=== PATIENT | female | born 1990 | race American Indian/Alaskan Native ===

== ENCOUNTER 2016-05-21 00:32 | Emergency (ER) | payer OTHER ==
[2016-05-21 01:19] LABS: Basophils % (Auto) 0.4 % (0.0-1.8); Hematocrit 31.7 % (30.3-42.9); Hemoglobin 10.1 gm/dl (10.1-14.3); Mean Corpuscular HGB Conc 32 % (30-34); Mean Corpuscular Hemoglobin 24 pg (28-32); Mean Corpuscular Volume 74 fl (79-97); Platelet Count 360 K/mm3 (140-440); Red Cell Distribution Width 16.2 % (13.2-15.2); White Blood Count 7.7 K/mm3 (4.5-11.0)
[2016-05-21 01:28] LABS: BUN/Creatinine Ratio 12.85; Blood Urea Nitrogen 9 mg/dL (7-17); Calcium 8.9 mg/dL (8.4-10.2); Carbon Dioxide 28 mmol/L (22-30); Chloride 100.5 mmol/L (98-107); Glucose 112 mg/dL (65-100); Potassium 4.1 mmol/L (3.6-5.0); Sodium 138 mmol/L (137-145)
[2016-05-21 01:36] LABS: Anion Gap 14 mmol/L
--- NOTE | 2016-05-21 09:26 | Emergency Department Report ---
HPI - General Chief Complaint: Chest Pain Time Seen by Provider: 05/21/16 09:17 - HPI HPI: Chief complaint: Chest pain HPI: Patient is a 25-year-old female complains of fluttering in her chest and shortness breath for the last several days. Patient states it is intermittent fluttering feels like it is racing. Patient has a history of gestational diabetes and obesity. Patient denies hypertension, cholesterol, family history of coronary artery disease, history of smoking or cocaine use. Patient has not had any recent travel or surgery and is not having any leg pain or unilateral leg swelling. Patient denies cough or cold or any nausea vomiting or diarrhea. Mode of arrival: [EMS] Source: [Patient] [old chart] Began: Several days Duration: Intermittent Context: See above Quality: Fluttering Severity: Mild Improved with: No change with respirations or palpation Worsened with: Associated signs and symptoms: See above ED Past Medical Hx - Past Medical History Previous Medical History?: Yes Hx Diabetes: Yes (gestational) Hx Seizures: No Hx Psychiatric Treatment: Yes (Anxiety) Additional medical history: MORBID OBESITY - Surgical History Past Surgical History?: Yes Additional Surgical History: C section x 1 - Social History Smoking Status: Never Smoker Substance Use Type: None - Medications Home Medications: Home Medications Medication Instructions Recorded Confirmed Last Taken Type Ibuprofen [Motrin 800 MG tab] 800 mg PO Q8HR PRN #30 tablet 03/20/16 Unknown Rx Ondansetron [Zofran TAB] 4 mg PO Q8HR PRN #10 tablet 03/20/16 Unknown Rx ED Review of Systems ROS: Stated complaint: GENERAL ILLNESS Other details as noted in HPI ROS Constitutional: No fever ENT: No uri symptoms Cardiovascular: See HPI Respiratory: No cough GI: No nausea vomiting or diarrhea : No dysuria frequency or urgency, Skin: No rash Neuro: No focal weakness or numbness Psych: Anxiety Raffaele/lymph: No edema Physical Exam - Physical Exam Vital Signs: Vital Signs 05/21/16 05/21/16 05/21/16 00:40 05:45 08:55 Temperature 97.9 F 97.7 F Pulse Rate 73 64 65 Respiratory 18 18 20 Rate Blood Pressure 148/92 142/94 Blood Pressure 140/77 [Left] O2 Sat by Pulse 100 100 100 Oximetry Physical Exam: GENERAL: The patient is a morbidly obese -[place] female no acute distress. HEENT: Normocephalic. Atraumatic. Extraocular motions are intact. Patient has moist mucous membranes. NECK: Supple. No meningitic signs are noted. There is no adenopathy noted. CHEST/LUNGS: Clear to auscultation. There is no respiratory distress noted. HEART/CARDIOVASCULAR: Regular. There is no tachycardia. There is no gallop rub or murmur. ABDOMEN: Abdomen is soft, nontender. Patient has normal bowel sounds. There is no abdominal distention. SKIN: There is no rash. There is no edema. There is no diaphoresis. NEURO: The patient is awake, alert, and oriented. The patient is cooperative. The patient has no focal neurologic deficits. The patient has normal speech. MUSCULOSKELETAL: There is no tenderness or deformity. There is no limitation range of motion. There is no evidence of acute injury. ED Course Vital Signs 05/21/16 05/21/16 05/21/16 00:40 05:45 08:55 Temperature 97.9 F 97.7 F Pulse Rate 73 64 65 Respiratory 18 18 20 Rate Blood Pressure 148/92 142/94 Blood Pressure 140/77 [Left] O2 Sat by Pulse 100 100 100 Oximetry ED Medical Decision Making - Lab Data Result diagrams: 05/21/16 01:03 05/21/16 01:03 Laboratory Tests 05/21/16 05/21/16 05/21/16 01:03 01:03 04:10 Troponin T < 0.010 < 0.010 HCG, Qual Negative 05/21/16 06:54 Troponin T < 0.010 HCG, Qual - EKG Data -: EKG Interpreted by Ok EKG shows normal: sinus rhythm Rate: normal (80) - EKG Data When compared to previous EKG there are: no significant change Interpretation: normal EKG - Radiology Data Radiology results: report reviewed (chest x-ray shows no acute process.) Critical care attestation.: If time is entered above; I have spent that time in minutes in the direct care of this critically ill patient, excluding procedure time. ED Disposition Clinical Impression: Palpitations Disposition: DISCHARGED TO HOME OR SELFCARE Is pt being admited?: No Does the pt Need Aspirin: No Condition: Stable Instructions: Palpitations (ED) Referrals: PRIMARY MD ESTRELLA [Primary Care Provider] - 3-5 Days [facility] [Provider Group] - 3-5 Days (This is a cardiology group for you to follow-up with for your palpitations.) Time of Disposition: 10:47
[2016-05-21] MEDS ORDERED: ZOFRAN IV ONE (09:49)
[2016-05-21] MEDS ORDERED: MORPHINE IV ONE (09:49)
--- NOTE | 2016-05-21 09:52 | XRay Report ---
ROUTINE CHEST, TWO VIEWS: HISTORY: chest pain. The trachea, heart, mediastinal contour, lung barrera and bony thorax are unremarkable. IMPRESSION: Unremarkable chest x-ray. No significant change since 12/07/15.
[2016-05-21 11:46] VITALS: BP 135/68
== END 2016-05-21 11:46 | disposition home or self-care (01) ==
LOC: ED 00:32
DX: R00.2 Palpitations (principal); R07.9 Chest pain, unspecified; E66.01 Morbid (severe) obesity due to excess calories; F41.9 Anxiety disorder, unspecified
CPT/HCPCS: 36415; 71020; 80048; 84484; 84703; 85025; 93005; 93010; 96374; 96375; 99285; J2270; J2405

== ENCOUNTER 2016-08-29 20:36 | Emergency (ER) | payer SELFPAY ==
[2016-08-29 21:45] LABS: Basophils % (Auto) 0.5 % (0.0-1.8); Hematocrit 36.7 % (30.3-42.9); Hemoglobin 11.4 gm/dl (10.1-14.3); Mean Corpuscular HGB Conc 31 % (30-34); Mean Corpuscular Volume 76 fl (79-97); Platelet Count 375 K/mm3 (140-440); Red Blood Count 4.83 M/mm3 (3.65-5.03); Red Cell Distribution Width 16.7 % (13.2-15.2)
[2016-08-29 21:52] LABS: Mean Corpuscular Hemoglobin 24 pg (28-32)
[2016-08-29 22:03] LABS: Anion Gap 19 mmol/L; BUN/Creatinine Ratio 21.25; Blood Urea Nitrogen 17 mg/dL (7-17); Calcium 9.6 mg/dL (8.4-10.2); Carbon Dioxide 24 mmol/L (22-30); Chloride 92.9 mmol/L (98-107); Potassium 4.2 mmol/L (3.6-5.0); Sodium 132 mmol/L (137-145)
[2016-08-29 22:19] LABS: Glucose 547 mg/dL (65-100)
[2016-08-29] MEDS ORDERED: NACL 0.9% 1000 ML 2,000 ML ONE (23:42)
[2016-08-29 23:44] LABS: Bacteria,Urine 1+ /HPF (Negative); Bilirubin,Urine NEG (Negative); Blood,Urine LG (Negative); Ketones,Urine NEG (Negative); Leukocyte Esterase,Urine TR (Negative); Nitrite,Urine NEG (Negative); Protein,Urine <15 mg/dL mg/dL (Negative); Urobilinogen,Urine < 2.0 mg/dL (<2.0)
[2016-08-30] MEDS: NACL 0.9% 1000 ML 1,000 ML IV ONE ×2 (00:05)
--- NOTE | 2016-08-30 02:30 | Emergency Department Report ---
ED Abdominal Pain HPI - General Chief Complaint: Hyperglycemia Stated Complaint: HIGH BLOOD SUGAR Time Seen by Provider: 08/30/16 01:25 Source: patient Mode of arrival: Stretcher Limitations: No Limitations - History of Present Illness Initial Comments: patient is a 25-year-old female with a history of morbid obesity and diabetes. Patient presented to the ER with dizziness and elevated blood sugars. She reports she takes metformin 500 mg twice daily but has not had any follow-up with any primary care due to insurance reasons. Otherwise no fevers chills nausea vomiting diarrhea chest pain shortness of breath abdominal pain dysuria back pain travel or sick contacts Severity scale (0 -10): 0 - Related Data Previous Rx's Medication Instructions Recorded Last Taken Type Ibuprofen [Motrin 800 MG tab] 800 mg PO Q8HR PRN #30 tablet 03/20/16 Unknown Rx Ondansetron [Zofran TAB] 4 mg PO Q8HR PRN #10 tablet 03/20/16 Unknown Rx Cefdinir 300 mg PO BID #14 capsule 08/30/16 Unknown Rx metFORMIN [Glucophage] 850 mg PO BID #30 tablet 08/30/16 Unknown Rx Allergies Allergy/AdvReac Type Severity Reaction Status Date / Time metoclopramide HCl AdvReac Itching Verified 02/21/16 12:16 [From [facility]] ED Review of Systems ROS: Stated complaint: HIGH BLOOD SUGAR Other details as noted in HPI Comment: All other systems reviewed and negative ED Past Medical Hx - Past Medical History Previous Medical History?: Yes Hx Diabetes: Yes (gestational) Hx Seizures: No Hx Psychiatric Treatment: Yes (Anxiety) Additional medical history: MORBID OBESITY - Surgical History Past Surgical History?: Yes Additional Surgical History: C section x 1 - Social History Smoking Status: Never Smoker Substance Use Type: None - Medications Home Medications: Home Medications Medication Instructions Recorded Confirmed Last Taken Type Ibuprofen [Motrin 800 MG tab] 800 mg PO Q8HR PRN #30 tablet 03/20/16 Unknown Rx Ondansetron [Zofran TAB] 4 mg PO Q8HR PRN #10 tablet 03/20/16 Unknown Rx Cefdinir 300 mg PO BID #14 capsule 08/30/16 Unknown Rx metFORMIN [Glucophage] 850 mg PO BID #30 tablet 08/30/16 Unknown Rx ED Physical Exam - General Limitations: No Limitations, Other (Morbid obesity) General appearance: alert, in no apparent distress - Head Head exam: Present: atraumatic, normocephalic - Eye Eye exam: Present: normal appearance - ENT ENT exam: Present: mucous membranes moist - Neck Neck exam: Present: normal inspection - Respiratory Respiratory exam: Present: normal lung sounds bilaterally. Absent: respiratory distress - Cardiovascular Cardiovascular Exam: Present: regular rate, normal rhythm. Absent: systolic murmur, diastolic murmur, rubs, gallop - GI/Abdominal GI/Abdominal exam: Present: soft, normal bowel sounds - Extremities Exam Extremities exam: Present: normal inspection - Back Exam Back exam: Present: normal inspection - Neurological Exam Neurological exam: Present: alert, oriented X3 - Psychiatric Psychiatric exam: Present: normal affect, normal mood - Skin Skin exam: Present: warm, dry, intact, normal color. Absent: rash ED Course Vital Signs 08/29/16 08/30/16 08/30/16 21:01 00:05 02:00 Temperature 97.8 F Pulse Rate 92 H 88 84 Respiratory 16 16 Rate Blood Pressure 141/93 Blood Pressure 114/54 132/88 [Left] O2 Sat by Pulse 98 97 97 Oximetry 08/30/16 02:51 Temperature Pulse Rate 86 Respiratory 18 Rate Blood Pressure Blood Pressure 132/88 [Left] O2 Sat by Pulse 97 Oximetry ED Medical Decision Making - Lab Data Result diagrams: 08/29/16 21:25 08/29/16 21:25 Critical care attestation.: If time is entered above; I have spent that time in minutes in the direct care of this critically ill patient, excluding procedure time. ED Disposition Clinical Impression: Hyperglycemia, UTI (urinary tract infection) Disposition: DISCHARGED TO HOME OR SELFCARE Is pt being admited?: No Condition: Stable Prescriptions: Cefdinir 300 mg PO BID #14 capsule metFORMIN [Glucophage] 850 mg PO BID #30 tablet Referrals: PRIMARY CARE, [Primary Care Provider] - 3-5 Days
[2016-08-30 02:51] VITALS: BP 132/88
== END 2016-08-30 03:18 | disposition home or self-care (01) ==
LOC: ED 20:36
DX: N39.0 Urinary tract infection, site not specified (principal); R73.9 Hyperglycemia, unspecified
CPT/HCPCS: 36415; 80048; 81001; 82010; 82805; 82962; 84484; 85025; 93005; 93010; 96360; 96361; 99285; J7030

== ENCOUNTER 2016-12-10 09:58 | Emergency (ER) | payer SELFPAY ==
[2016-12-10 10:53] LABS: Basophils % (Auto) 0.3 % (0.0-1.8); Eosinophils % (Auto) 0.7 % (0.0-4.3); Hematocrit 35.9 % (30.3-42.9); Hemoglobin 11.3 gm/dl (10.1-14.3); Mean Corpuscular HGB Conc 31 % (30-34); Mean Corpuscular Volume 74 fl (79-97); Platelet Count 368 K/mm3 (140-440); Red Blood Count 4.87 M/mm3 (3.65-5.03); Red Cell Distribution Width 16.9 % (13.2-15.2); White Blood Count 6.4 K/mm3 (4.5-11.0)
[2016-12-10 10:58] LABS: Mean Corpuscular Hemoglobin 23 pg (28-32)
[2016-12-10 11:09] LABS: Anion Gap 19 mmol/L; Blood Urea Nitrogen 12 mg/dL (7-17); Calcium 9.3 mg/dL (8.4-10.2); Carbon Dioxide 26 mmol/L (22-30); Chloride 99.2 mmol/L (98-107); Glucose 241 mg/dL (65-100); Potassium 4.3 mmol/L (3.6-5.0); Sodium 140 mmol/L (137-145)
[2016-12-10] MEDS ORDERED: TYLENOL PO ONE (16:16)
[2016-12-10] MEDS ORDERED: MOTRIN PO ONE (16:16)
--- NOTE | 2016-12-10 17:27 | XRay Report ---
FINAL REPORT PROCEDURE: Chest. TECHNIQUE: HISTORY: Chest pain. COMPARISON: No prior studies are available for comparison. FINDINGS: The heart and mediastinum appear normal. The lungs are clear and well expanded. There are no pleural effusions. The soft tissues and regional skeleton are unremarkable. IMPRESSION: Normal study.
--- NOTE | 2016-12-10 17:57 | Emergency Department Report ---
ED Chest Pain HPI - General Chief Complaint: Chest Pain Stated Complaint: LEFT ARM PRESSURE/CHEST PRESSURE Time Seen by Provider: 12/10/16 16:14 Source: patient Mode of arrival: Ambulatory Limitations: No Limitations - History of Present Illness Initial Comments: Patient is a 26-year-old female with no significant past medical history who presents with left-sided chest pain. That has been going on for about 2 weeks patient states that pain is a 6 out of 10 coughing makes it worse nothing makes it better. Patient has been taking [id number] medications for her chest pain with no relief. Patient also states that she has been having a productive cough with green mucus. No fever and no chills patient denies having any sick contacts. Patient's pain is not associated with vision changes like swelling or headache. Severity scale (0 -10): 10 - Related Data Previous Rx's Medication Instructions Recorded Last Taken Type Ondansetron [Zofran TAB] 4 mg PO Q8HR PRN #10 tablet 03/20/16 Unknown Rx Cefdinir 300 mg PO BID #14 capsule 08/30/16 Unknown Rx metFORMIN [Glucophage] 850 mg PO BID #30 tablet 08/30/16 Unknown Rx Acetaminophen [Acetaminophen TAB] 1,000 mg PO Q6HR #60 tablet 12/10/16 Unknown Rx Acetaminophen [Tylenol] 1,000 mg PO Q6HR #30 tablet 12/10/16 Unknown Rx Naproxen [Naprosyn TAB] 375 mg PO BID #30 tablet 12/10/16 Unknown Rx Naproxen [Naprosyn TAB] 375 mg PO BID #30 tablet 12/10/16 Unknown Rx Allergies Allergy/AdvReac Type Severity Reaction Status Date / Time metoclopramide HCl AdvReac Itching Verified 02/21/16 12:16 [From [facility]] Heart Score - HEART Score History: Slightly suspicious EKG: Normal Age: < 45 Risk factors: No known risk factors Troponin: < normal limit HEART Score: 0 ED Review of Systems ROS: Stated complaint: LEFT ARM PRESSURE/CHEST PRESSURE Other details as noted in HPI Constitutional: no symptoms reported Eyes: denies: eye pain, eye discharge, vision change ENT: denies: ear pain, throat pain Respiratory: cough. denies: shortness of breath, wheezing Cardiovascular: chest pain Endocrine: no symptoms reported Gastrointestinal: denies: abdominal pain, nausea, diarrhea Genitourinary: denies: urgency, dysuria, discharge Musculoskeletal: denies: back pain, joint swelling, arthralgia Skin: denies: rash, lesions Neurological: denies: headache, weakness, paresthesias Psychiatric: denies: anxiety, depression Hematological/Lymphatic: denies: easy bleeding, easy bruising ED Past Medical Hx - Past Medical History Previous Medical History?: Yes Hx Diabetes: Yes (gestational) Hx Seizures: No Hx Psychiatric Treatment: Yes (Anxiety) Additional medical history: MORBID OBESITY - Surgical History Past Surgical History?: Yes Additional Surgical History: C section x 1 - Social History Smoking Status: Current Every Day Smoker Substance Use Type: None - Medications Home Medications: Home Medications Medication Instructions Recorded Confirmed Last Taken Type Ondansetron [Zofran TAB] 4 mg PO Q8HR PRN #10 tablet 03/20/16 Unknown Rx Cefdinir 300 mg PO BID #14 capsule 08/30/16 Unknown Rx metFORMIN [Glucophage] 850 mg PO BID #30 tablet 08/30/16 Unknown Rx Acetaminophen [Acetaminophen TAB] 1,000 mg PO Q6HR #60 tablet 12/10/16 Unknown Rx Acetaminophen [Tylenol] 1,000 mg PO Q6HR #30 tablet 12/10/16 Unknown Rx Naproxen [Naprosyn TAB] 375 mg PO BID #30 tablet 12/10/16 Unknown Rx Naproxen [Naprosyn TAB] 375 mg PO BID #30 tablet 12/10/16 Unknown Rx ED Physical Exam - General Limitations: No Limitations General appearance: alert - Head Head exam: Present: atraumatic - Eye Eye exam: Present: normal appearance, PERRL, EOMI - ENT ENT exam: Present: mucous membranes moist - Neck Neck exam: Present: normal inspection - Respiratory Respiratory exam: Present: normal lung sounds bilaterally. Absent: respiratory distress - Cardiovascular Cardiovascular Exam: Present: regular rate, normal heart sounds, other (chest wall tenderness) - GI/Abdominal GI/Abdominal exam: Present: soft - Extremities Exam Extremities exam: Present: normal inspection - Back Exam Back exam: Present: normal inspection - Neurological Exam Neurological exam: Present: alert, oriented X3 - Psychiatric Psychiatric exam: Present: normal affect, normal mood - Skin Skin exam: Present: warm, dry ED Course Vital Signs 12/10/16 12/10/16 12/10/16 10:17 15:36 15:40 Temperature 98.1 F Pulse Rate 75 74 75 Respiratory 16 16 Rate Blood Pressure 145/100 116/63 Blood Pressure [Right] O2 Sat by Pulse 100 98 Oximetry 12/10/16 12/10/16 12/10/16 15:50 15:51 15:59 Temperature Pulse Rate 72 72 Respiratory 16 22 17 Rate Blood Pressure 116/63 Blood Pressure 116/63 [Right] O2 Sat by Pulse 99 98 100 Oximetry 12/10/16 12/10/16 12/10/16 16:00 16:09 16:10 Temperature 98 F Pulse Rate 76 68 Respiratory 10 L 27 H Rate Blood Pressure 120/75 120/75 Blood Pressure [Right] O2 Sat by Pulse 100 100 Oximetry 12/10/16 12/10/16 12/10/16 16:24 16:30 16:40 Temperature Pulse Rate 67 72 Respiratory 15 23 Rate Blood Pressure 116/63 135/70 135/70 Blood Pressure [Right] O2 Sat by Pulse 99 100 100 Oximetry 12/10/16 12/10/16 12/10/16 16:50 17:00 17:10 Temperature Pulse Rate 70 73 72 Respiratory 15 20 13 Rate Blood Pressure 120/75 120/75 146/81 Blood Pressure [Right] O2 Sat by Pulse 99 99 99 Oximetry 12/10/16 12/10/16 12/10/16 17:20 17:30 17:40 Temperature Pulse Rate 71 75 70 Respiratory 16 14 19 Rate Blood Pressure 146/81 146/81 159/89 Blood Pressure [Right] O2 Sat by Pulse 99 100 100 Oximetry 12/10/16 17:50 Temperature Pulse Rate 75 Respiratory 13 Rate Blood Pressure 159/89 Blood Pressure [Right] O2 Sat by Pulse 100 Oximetry - Reevaluation(s) Reevaluation #1: 12/10/16 18:25 Patient states that she still having some slight chest pain will give patient oral analgesic medication. Patent discussed patient's laboratory findings. State that patient can be discharged home with Tylenol or ibuprofen. COSTA score - Costa Score Age > 65: (0) No Aspirin use within the Past 7 Days: (0) No 3 or more CAD Risk Factors: (0) No 2 or more Angina events in past 24 hrs: (0) No Known CAD with more than 50% Stenosis: (0) No Elevated Cardiac Markers: (0) No ST Deviation Greater than 0.5mm: (0) No COSTA Score: 0 ED Medical Decision Making - Lab Data Result diagrams: 12/10/16 10:39 12/10/16 10:39 Laboratory Results - last 24 hr 12/10/16 12/10/16 12/10/16 10:39 10:39 14:53 WBC 6.4 RBC 4.87 Hgb 11.3 Hct 35.9 MCV 74 L MCH 23 L MCHC 31 RDW 16.9 H Plt Count 368 Lymph % (Auto) 25.9 [place] % (Auto) 7.9 H Eos % (Auto) 0.7 Baso % (Auto) 0.3 Lymph # 1.7 [place] # 0.5 Eos # 0.0 Baso # 0.0 Seg Neutrophils % 65.2 Seg Neutrophils # 4.2 Sodium 140 Potassium 4.3 Chloride 99.2 Carbon Dioxide 26 Anion Gap 19 BUN 12 Creatinine 0.6 L Estimated GFR > 60 BUN/Creatinine Ratio 20.00 Glucose 241 H Calcium 9.3 Troponin T < 0.010 < 0.010 Urine Color Urine Turbidity Urine pH Ur Specific [place] Urine Protein Urine Glucose (UA) Urine Ketones Urine Blood Urine Nitrite Urine Bilirubin Urine Urobilinogen Ur Leukocyte Esterase Urine WBC (Auto) Urine RBC (Auto) U Epithel Cells (Auto) Urine Mucus Urine HCG, Qual 12/10/16 12/10/16 16:47 17:03 WBC RBC Hgb Hct MCV MCH MCHC RDW Plt Count Lymph % (Auto) [place] % (Auto) Eos % (Auto) Baso % (Auto) Lymph # [place] # Eos # Baso # Seg Neutrophils % Seg Neutrophils # Sodium Potassium Chloride Carbon Dioxide Anion Gap BUN Creatinine Estimated GFR BUN/Creatinine Ratio Glucose Calcium Troponin T < 0.010 Urine Color Yellow Urine Turbidity Clear Urine pH 6.0 Ur Specific [place] 1.022 Urine Protein 100 mg/dl Urine Glucose (UA) >=500 Urine Ketones Neg Urine Blood Lg Urine Nitrite Neg Urine Bilirubin Neg Urine Urobilinogen < 2.0 Ur Leukocyte Esterase Sm Urine WBC (Auto) 55.0 H Urine RBC (Auto) > 182.0 U Epithel Cells (Auto) 23.0 H Urine Mucus Few Urine HCG, Qual Negative - EKG Data 12/10/16 18:27 EKG shows normal sinus rhythm no ST segment elevation no prolonged intervals no Q waves - Radiology Data Radiology results: report reviewed, image reviewed Chest x-ray reviewed shows no acute pulmonary disease no cardiomegaly no pneumothorax noted findings. - Medical Decision Making Chief medical diagnosis: Pulled chest wall muscle Differential medical diagnosis: N STEMI, bruised rib, costochondritis pneumothorax We'll get an EKG and troponin CBC CMP and chest x-ray Patient's laboratory findings and chest x-ray showed no concerning acute pathology we'll send patient home with, ibuprofen and will tell patient to follow follow-up with a primary care provider. Critical care attestation.: If time is entered above; I have spent that time in minutes in the direct care of this critically ill patient, excluding procedure time. ED Disposition Clinical Impression: Chest wall pain Disposition: - TO HOME OR SELFCARE Is pt being admited?: No Does the pt Need Aspirin: No Condition: Stable Instructions: Chest Pain (ED), Costochondritis (ED) Prescriptions: Acetaminophen [Acetaminophen TAB] 1,000 mg PO Q6HR #60 tablet Acetaminophen [Tylenol] 1,000 mg PO Q6HR #30 tablet Naproxen [Naprosyn TAB] 375 mg PO BID #30 tablet Naproxen [Naprosyn TAB] 375 mg PO BID #30 tablet Referrals: [facility] [Provider Group] - 3-5 Days MAYNOR NAVARRO JR, MD [Staff Physician] - 3-5 Days Time of Disposition: 18:36
[2016-12-10 17:59] LABS: Bilirubin,Urine NEG (Negative); Blood,Urine LG (Negative); Ketones,Urine NEG (Negative); Leukocyte Esterase,Urine SM (Negative); Mucus,Urine FEW /HPF; Nitrite,Urine NEG (Negative); Urobilinogen,Urine < 2.0 mg/dL (<2.0)
[2016-12-10 18:02] LABS: RBC,Urine > 182.0 /HPF (0.0-6.0)
[2016-12-10] MEDS ORDERED: NORCO 10/325 PO ONE (18:05)
[2016-12-10 19:16] VITALS: BP 148/61
== END 2016-12-10 19:16 | disposition home or self-care (01) ==
LOC: ED 09:58
DX: R07.89 Other chest pain (principal); F41.9 Anxiety disorder, unspecified; E66.01 Morbid (severe) obesity due to excess calories; F17.200 Nicotine dependence, unspecified, uncomplicated; Z88.8 Allergy status to other drugs, medicaments and biological substances
CPT/HCPCS: 36415; 71020; 80048; 81001; 81025; 84484; 85025; 93005; 93010

== ENCOUNTER 2017-01-18 00:05 | Emergency (ER) | payer SELFPAY ==
[2017-01-18 00:46] LABS: Basophils % (Auto) 0.6 % (0.0-1.8); Eosinophils % (Auto) 0.7 % (0.0-4.3); Hematocrit 33.1 % (30.3-42.9); Hemoglobin 10.6 gm/dl (10.1-14.3); Mean Corpuscular HGB Conc 32 % (30-34); Mean Corpuscular Volume 74 fl (79-97); Platelet Count 439 K/mm3 (140-440); Red Blood Count 4.48 M/mm3 (3.65-5.03); Red Cell Distribution Width 17.7 % (13.2-15.2); White Blood Count 10.5 K/mm3 (4.5-11.0)
[2017-01-18 00:52] LABS: Mean Corpuscular Hemoglobin 24 pg (28-32)
[2017-01-18 01:08] LABS: Alanine Aminotransferase 12 units/L (7-56); Albumin 4.2 g/dL (3.9-5); Alkaline Phosphatase 88 units/L (35-129); Anion Gap 18 mmol/L; BUN/Creatinine Ratio 14.44; Blood Urea Nitrogen 13 mg/dL (7-17); Calcium 9.6 mg/dL (8.4-10.2); Carbon Dioxide 26 mmol/L (22-30); Chloride 98.5 mmol/L (98-107); Glucose 158 mg/dL (65-100); Lipase 23 units/L (13-60); Potassium 4.1 mmol/L (3.6-5.0); Sodium 138 mmol/L (137-145); Total Protein 8.6 g/dL (6.3-8.2)
[2017-01-18 02:26] LABS: Bacteria,Urine 1+ /HPF (Negative); Bilirubin,Urine NEG (Negative); Blood,Urine LG (Negative); Ketones,Urine NEG (Negative); Leukocyte Esterase,Urine TR (Negative); Nitrite,Urine NEG (Negative); RBC,Urine > 182.0 /HPF (0.0-6.0); Urobilinogen,Urine < 2.0 mg/dL (<2.0)
[2017-01-18 03:47] VITALS: BP 107/53
--- NOTE | 2017-01-18 04:05 | Emergency Department Report ---
ED Female HPI - General Chief complaint: Abdominal Pain Stated complaint: ABD PAIN Time Seen by Provider: 01/18/17 03:54 Source: patient Mode of arrival: Ambulatory Limitations: No Limitations - History of Present Illness Initial comments: 26 years old female with no previous significant medical history she can with an abnormal vaginal bleeding has being going on since June of this year she stated that the bleeding is on and off sometimes with clots. Denied any shortness of breath chest pain or dizziness. Patient stated that she is not sexually active. No other complaints. MD Complaint: vaginal bleeding -: Gradual Associated Symptoms: vaginal bleeding. denies: nausea/vomiting, loss of appetite - Related Data Previous Rx's Medication Instructions Recorded Last Taken Type Ondansetron [Zofran TAB] 4 mg PO Q8HR PRN #10 tablet 03/20/16 Unknown Rx Cefdinir 300 mg PO BID #14 capsule 08/30/16 Unknown Rx metFORMIN [Glucophage] 850 mg PO BID #30 tablet 08/30/16 Unknown Rx Acetaminophen [Acetaminophen TAB] 1,000 mg PO Q6HR #60 tablet 12/10/16 Unknown Rx Acetaminophen [Tylenol] 1,000 mg PO Q6HR #30 tablet 12/10/16 Unknown Rx Naproxen [Naprosyn TAB] 375 mg PO BID #30 tablet 12/10/16 Unknown Rx Naproxen [Naprosyn TAB] 375 mg PO BID #30 tablet 12/10/16 Unknown Rx medroxyPROGESTERone ACETATE 10 mg PO QDAY #10 tablet 01/18/17 Unknown Rx [Provera] Allergies Allergy/AdvReac Type Severity Reaction Status Date / Time metoclopramide HCl AdvReac Itching Verified 02/21/16 12:16 [From [facility]] ED Review of Systems ROS: Stated complaint: ABD PAIN Other details as noted in HPI Comment: All other systems reviewed and negative Constitutional: denies: chills, fever Respiratory: denies: cough, shortness of breath Cardiovascular: denies: chest pain, palpitations Gastrointestinal: denies: abdominal pain, nausea, vomiting, hematemesis, melena , hematochezia Neurological: denies: headache, weakness Hematological/Lymphatic: denies: easy bleeding, easy bruising ED Past Medical Hx - Past Medical History Hx Diabetes: Yes (gestational) Hx Seizures: No Hx Psychiatric Treatment: Yes (Anxiety) Additional medical history: MORBID OBESITY - Surgical History Past Surgical History?: Yes Additional Surgical History: C section x 1 - Social History Smoking Status: Never Smoker - Medications Home Medications: Home Medications Medication Instructions Recorded Confirmed Last Taken Type Ondansetron [Zofran TAB] 4 mg PO Q8HR PRN #10 tablet 03/20/16 Unknown Rx Cefdinir 300 mg PO BID #14 capsule 08/30/16 Unknown Rx metFORMIN [Glucophage] 850 mg PO BID #30 tablet 08/30/16 Unknown Rx Acetaminophen [Acetaminophen TAB] 1,000 mg PO Q6HR #60 tablet 12/10/16 Unknown Rx Acetaminophen [Tylenol] 1,000 mg PO Q6HR #30 tablet 12/10/16 Unknown Rx Naproxen [Naprosyn TAB] 375 mg PO BID #30 tablet 12/10/16 Unknown Rx Naproxen [Naprosyn TAB] 375 mg PO BID #30 tablet 12/10/16 Unknown Rx medroxyPROGESTERone ACETATE 10 mg PO QDAY #10 tablet 01/18/17 Unknown Rx [Provera] ED Physical Exam - General Limitations: No Limitations General appearance: alert, in no apparent distress - Head Head exam: Present: normocephalic - Eye Eye exam: Present: normal appearance - ENT ENT exam: Present: normal exam, normal orophraynx - Respiratory Respiratory exam: Present: normal lung sounds bilaterally. Absent: wheezes, rales, rhonchi - Cardiovascular Cardiovascular Exam: Present: regular rate, normal rhythm, normal heart sounds - GI/Abdominal GI/Abdominal exam: Present: soft. Absent: distended, tenderness, guarding, rebound, rigid, normal bowel sounds, organomegaly, mass - Neurological Exam Neurological exam: Present: alert, oriented X3, CN II-XII intact - Skin Skin exam: Present: warm, intact, normal color ED Course Vital Signs 01/18/17 01/18/17 00:14 03:05 Temperature 99.5 F 98.6 F Pulse Rate 102 H 94 H Respiratory 20 16 Rate Blood Pressure 133/86 Blood Pressure 107/53 [Right] O2 Sat by Pulse 97 98 Oximetry ED Medical Decision Making - Lab Data Result diagrams: 01/18/17 00:35 01/18/17 00:35 Critical care attestation.: If time is entered above; I have spent that time in minutes in the direct care of this critically ill patient, excluding procedure time. ED Disposition Clinical Impression: Abnormal vaginal bleeding Disposition: TO HOME OR SELFCARE Is pt being admited?: No Condition: Stable Instructions: Abdominal Pain (ED) Referrals: PRIMARY CARE, [Primary Care Provider] - 3-5 Days PHONG SEVILLA MD [Staff Physician] - 3-5 Days
== END 2017-01-18 04:16 | disposition home or self-care (01) ==
LOC: ED 00:05
DX: N93.9 Abnormal uterine and vaginal bleeding, unspecified (principal); Z88.8 Allergy status to other drugs, medicaments and biological substances
CPT/HCPCS: 36415; 80053; 81001; 81025; 83690; 85025; 99283

== ENCOUNTER 2017-02-08 10:47 | Emergency (ER) | payer SELFPAY ==
[2017-02-08 12:05] LABS: Basophils % (Auto) 0.3 % (0.0-1.8); Eosinophils % (Auto) 0.6 % (0.0-4.3); Hematocrit 26.6 % (30.3-42.9); Hemoglobin 8.3 gm/dl (10.1-14.3); Mean Corpuscular HGB Conc 31 % (30-34); Mean Corpuscular Volume 74 fl (79-97); Platelet Count 441 K/mm3 (140-440); Red Cell Distribution Width 17.4 % (13.2-15.2); White Blood Count 9.8 K/mm3 (4.5-11.0)
[2017-02-08 12:11] LABS: Mean Corpuscular Hemoglobin 23 pg (28-32)
--- NOTE | 2017-02-08 13:57 | Ultrasound Report ---
ULTRASOUND PELVIC COMPLETE ULTRASOUND TRANSVAGINAL HISTORY: Vaginal bleeding, abdominal pain. TECHNIQUE: Transabdominal and transvaginal ultrasound with color and spectral doppler interrogation. The uterus is anteverted and measures 9 x 4 x 5 cm. No obvious uterine fibroids are visualized. The endometrial stripe measures 1.4 cm. There is trace fluid in the lower uterine segment which could represent blood products. The right ovary measures 4.5 x 2.7 x 3.6 cm. The left ovary is not visualized. No adnexal cyst or mass is appreciated. No pelvic fluid collection. IMPRESSION: The uterus and endometrium are within normal limits. There is trace endometrial fluid which could represent blood. No obvious uterine or endometrial mass. Normal right ovary. The left ovary is not visualized.
[2017-02-08 16:03] LABS: Bacteria,Urine 1+ /HPF (Negative); Bilirubin,Urine NEG (Negative); Blood,Urine LG (Negative); Ketones,Urine NEG (Negative); Leukocyte Esterase,Urine MOD (Negative); Nitrite,Urine NEG (Negative); Urobilinogen,Urine < 2.0 mg/dL (<2.0)
[2017-02-08 16:04] LABS: RBC,Urine > 182.0 /HPF (0.0-6.0)
[2017-02-08] MEDS ORDERED: METHERGINE IM ONE (16:27)
--- NOTE | 2017-02-08 16:32 | Emergency Department Report ---
ED Female HPI - General Chief complaint: Vaginal Bleeding Stated complaint: VAGING BLEEDING, ABDOMINAL PAIN Time Seen by Provider: 02/08/17 16:12 Source: patient Mode of arrival: Ambulatory Limitations: No Limitations - History of Present Illness Initial comments: Patient is a 26 years old female presented today with vaginally bleeding for the last two month, patient was seen here 2 weeks ago for the same, patient was given Provera and asked to follow up with her applied behavior science specialist,patient did not follow-up with her applied behavior science specialist she stated that her bleeding continued since then, she is changing pads every 3 hours. Denied any chest pain shortness of breath. MD Complaint: vaginal bleeding, pelvic pain -: month(s) Radiation: suprapubic Severity scale (0 -10): 4 Quality: dull Consistency: constant Associated Symptoms: vaginal bleeding, abdominal pain. denies: vaginal discharge, nausea/vomiting, fever/chills, headaches, loss of appetite, dysuria, hematuria - Related Data Previous Rx's Medication Instructions Recorded Last Taken Type Ondansetron [Zofran TAB] 4 mg PO Q8HR PRN #10 tablet 03/20/16 Unknown Rx Cefdinir 300 mg PO BID #14 capsule 08/30/16 Unknown Rx metFORMIN [Glucophage] 850 mg PO BID #30 tablet 08/30/16 Unknown Rx Acetaminophen [Acetaminophen TAB] 1,000 mg PO Q6HR #60 tablet 12/10/16 Unknown Rx Acetaminophen [Tylenol] 1,000 mg PO Q6HR #30 tablet 12/10/16 Unknown Rx Naproxen [Naprosyn TAB] 375 mg PO BID #30 tablet 12/10/16 Unknown Rx Naproxen [Naprosyn TAB] 375 mg PO BID #30 tablet 12/10/16 Unknown Rx medroxyPROGESTERone ACETATE 10 mg PO QDAY #10 tablet 01/18/17 Unknown Rx [Provera] Ferrous Sulfate [Feosol 325 MG tab] 325 mg PO BID #60 tablet 02/08/17 Unknown Rx medroxyPROGESTERone ACETATE 10 mg PO QDAY #30 tablet 02/08/17 Unknown Rx [Provera] Allergies Allergy/AdvReac Type Severity Reaction Status Date / Time metoclopramide HCl AdvReac Itching Verified 02/21/16 12:16 [From Reglan] ED Review of Systems ROS: Stated complaint: VAGING BLEEDING, ABDOMINAL PAIN Other details as noted in HPI Comment: All other systems reviewed and negative Constitutional: denies: chills, fever Respiratory: denies: cough, shortness of breath, SOB with exertion Gastrointestinal: abdominal pain (suprapubic). denies: nausea, vomiting, diarrhea, constipation, hematemesis, melena, hematochezia Genitourinary: abnormal menses. denies: urgency, dysuria, frequency, hematuria , discharge, dyspareunia Skin: denies: rash Neurological: denies: weakness Hematological/Lymphatic: denies: easy bleeding ED Past Medical Hx - Past Medical History Hx Diabetes: Yes (gestational) Hx Seizures: No Hx Psychiatric Treatment: Yes (Anxiety) Additional medical history: MORBID OBESITY - Surgical History Past Surgical History?: Yes Additional Surgical History: C section x 1 - Social History Smoking Status: Never Smoker Substance Use Type: None - Medications Home Medications: Home Medications Medication Instructions Recorded Confirmed Last Taken Type Ondansetron [Zofran TAB] 4 mg PO Q8HR PRN #10 tablet 03/20/16 Unknown Rx Cefdinir 300 mg PO BID #14 capsule 08/30/16 Unknown Rx metFORMIN [Glucophage] 850 mg PO BID #30 tablet 08/30/16 Unknown Rx Acetaminophen [Acetaminophen TAB] 1,000 mg PO Q6HR #60 tablet 12/10/16 Unknown Rx Acetaminophen [Tylenol] 1,000 mg PO Q6HR #30 tablet 12/10/16 Unknown Rx Naproxen [Naprosyn TAB] 375 mg PO BID #30 tablet 12/10/16 Unknown Rx Naproxen [Naprosyn TAB] 375 mg PO BID #30 tablet 12/10/16 Unknown Rx medroxyPROGESTERone ACETATE 10 mg PO QDAY #10 tablet 01/18/17 Unknown Rx [Provera] Ferrous Sulfate [Feosol 325 MG tab] 325 mg PO BID #60 tablet 02/08/17 Unknown Rx medroxyPROGESTERone ACETATE 10 mg PO QDAY #30 tablet 02/08/17 Unknown Rx [Provera] ED Physical Exam - General Limitations: No Limitations General appearance: alert, in no apparent distress - Head Head exam: Present: atraumatic, normocephalic - Eye Eye exam: Present: normal appearance, PERRL - ENT ENT exam: Present: normal exam, normal orophraynx - Neck Neck exam: Present: normal inspection. Absent: lymphadenopathy - Respiratory Respiratory exam: Present: normal lung sounds bilaterally. Absent: wheezes, rales, rhonchi - Cardiovascular Cardiovascular Exam: Present: regular rate, normal rhythm, normal heart sounds - GI/Abdominal GI/Abdominal exam: Present: soft, normal bowel sounds. Absent: distended, tenderness, guarding, rebound, rigid, mass, bruit, pulsatile mass, hernia - Extremities Exam Extremities exam: Present: normal inspection, full ROM, normal capillary refill - Back Exam Back exam: Present: normal inspection. Absent: CVA tenderness (R), CVA tenderness (L) - Neurological Exam Neurological exam: Present: alert, oriented X3, CN II-XII intact, normal gait - Skin Skin exam: Present: warm, intact, normal color ED Course Vital Signs 02/08/17 02/08/17 02/08/17 11:13 12:39 12:44 Temperature 98.4 F Pulse Rate 84 80 Respiratory 18 18 16 Rate Blood Pressure 150/66 Blood Pressure 117/53 [Left] O2 Sat by Pulse 100 99 Oximetry 02/08/17 02/08/17 14:26 16:58 Temperature Pulse Rate 88 83 Respiratory 16 16 Rate Blood Pressure Blood Pressure 127/71 135/67 [Left] O2 Sat by Pulse 100 100 Oximetry ED Medical Decision Making - Lab Data Result diagrams: 02/08/17 11:33 - Radiology Data Radiology results: report reviewed Ultrasound pelvic shows normal uterus was no acute abnormalities - Medical Decision Making This is the patient's second visit to the ER for the same reason, however ultrasound report came back negative hemoglobin dropped from 10 to 8. I advised the patient to follow-up with her applied behavior science specialist urgently. I will give Methergine intramuscularly. And I'll provide Provera and ferrous sulfate. Critical care attestation.: If time is entered above; I have spent that time in minutes in the direct care of this critically ill patient, excluding procedure time. ED Disposition Clinical Impression: Vaginal bleeding, abnormal Disposition: DC-01 TO HOME OR SELFCARE Is pt being admited?: No Condition: Stable Instructions: Dysfunctional Uterine Bleeding (ED) Prescriptions: Ferrous Sulfate [Feosol 325 MG tab] 325 mg PO BID #60 tablet medroxyPROGESTERone ACETATE [Provera] 10 mg PO QDAY #30 tablet Referrals: PRIMARY CARE, [Primary Care Provider] - 3-5 Days Forms: Work/School Release Form(ED)
[2017-02-08 16:59] VITALS: BP 135/67
== END 2017-02-08 17:00 | disposition home or self-care (01) ==
LOC: ED 10:47
DX: N93.9 Abnormal uterine and vaginal bleeding, unspecified (principal); R10.2 Pelvic and perineal pain; Z88.8 Allergy status to other drugs, medicaments and biological substances
CPT/HCPCS: 36415; 76830; 76856; 81001; 84702; 85014; 85018; 85025; 86850; 86900; 86901; 96372; 99284; J2210

== ENCOUNTER 2017-03-02 09:47 | Emergency (ER) | payer SELFPAY ==
[2017-03-02 10:35] LABS: Basophils % (Auto) 0.2 % (0.0-1.8); Hematocrit 26.3 % (30.3-42.9); Hemoglobin 8.3 gm/dl (10.1-14.3); Mean Corpuscular HGB Conc 32 % (30-34); Mean Corpuscular Volume 73 fl (79-97); Platelet Count 570 K/mm3 (140-440); Red Blood Count 3.62 M/mm3 (3.65-5.03); Red Cell Distribution Width 17.4 % (13.2-15.2)
[2017-03-02 10:46] LABS: Bacteria,Urine 1+ /HPF (Negative); Bilirubin,Urine NEG (Negative); Blood,Urine LG (Negative); Ketones,Urine NEG (Negative); Leukocyte Esterase,Urine NEG (Negative); Mucus,Urine FEW /HPF; Nitrite,Urine NEG (Negative); Urobilinogen,Urine < 2.0 mg/dL (<2.0)
[2017-03-02 10:47] LABS: INR 0.99 (0.87-1.13)
[2017-03-02 10:49] LABS: Alanine Aminotransferase 11 units/L (7-56); Albumin 3.8 g/dL (3.9-5); Albumin/Globulin Ratio 0.9 %; Alkaline Phosphatase 79 units/L (35-129); Anion Gap 15 mmol/L; BUN/Creatinine Ratio 16; Blood Urea Nitrogen 11 mg/dL (7-17); Calcium 8.7 mg/dL (8.4-10.2); Carbon Dioxide 25 mmol/L (22-30); Chloride 102.5 mmol/L (98-107); Glucose 157 mg/dL (65-100); Potassium 4.2 mmol/L (3.6-5.0); Sodium 138 mmol/L (137-145); Total Protein 7.9 g/dL (6.3-8.2)
[2017-03-02 10:50] LABS: RBC,Urine > 182.0 /HPF (0.0-6.0)
[2017-03-02 10:50] LABS: Mean Corpuscular Hemoglobin 23 pg (28-32)
[2017-03-02 14:55] VITALS: BP 148/71
--- NOTE | 2017-03-02 18:15 | Emergency Department Report ---
ED General Adult HPI - General Chief complaint: Vaginal Bleeding Stated complaint: VAGINAL BLEEDING Time Seen by Provider: 03/02/17 17:36 Source: patient, RN notes reviewed, old records reviewed Mode of arrival: Ambulatory Limitations: No Limitations - History of Present Illness Initial comments: This is a 26-year-old female, the patient is previously unknown to this provider , patient has a past medical history of vaginal bleeding for 7 months, currently on Provera supplementation, presented to the ER with multiple complaints. Her first complaint is vaginal bleeding for 7 months. The bleeding is constant. It does not have exacerbating or relieving factors. Patient recently seen at this hospital February 08 for similar symptoms, had an ultrasound which demonstrated "uterus and endometrium are within normal limits. There is trace endometrial fluid which could represent blood. No obvious uterine or endometrial mass." Patient was prescribed ferric sulfate, she reports poor compliance with this as she does not like the side effect profile. She also saw a veneer taping machine operator last week, at the [facility], and she reports that they performed a "Pap smear." The patient also complains of subxiphoid discomfort for one week. The discomfort does not radiate to the back, arms or neck. There is no vomiting or diaphoresis, it worsens with palpation and deep inspiration. Patient denies irritative/obstructive urinary symptoms, denies hematemesis and bright red blood per rectum, denies lightheadedness, shortness of breath. -: days(s) (subxiphoid discomfort), month(s) (vaginal bleeding) Location: abdomen Consistency: constant Improves with: none Worsens with: none Associated Symptoms: denies: cough - Related Data Previous Rx's Medication Instructions Recorded Last Taken Type Ondansetron [Zofran TAB] 4 mg PO Q8HR PRN #10 tablet 03/20/16 Unknown Rx Cefdinir 300 mg PO BID #14 capsule 08/30/16 Unknown Rx metFORMIN [Glucophage] 850 mg PO BID #30 tablet 08/30/16 Unknown Rx Acetaminophen [Acetaminophen TAB] 1,000 mg PO Q6HR #60 tablet 12/10/16 Unknown Rx Acetaminophen [Tylenol] 1,000 mg PO Q6HR #30 tablet 12/10/16 Unknown Rx Naproxen [Naprosyn TAB] 375 mg PO BID #30 tablet 12/10/16 Unknown Rx Naproxen [Naprosyn TAB] 375 mg PO BID #30 tablet 12/10/16 Unknown Rx medroxyPROGESTERone ACETATE 10 mg PO QDAY #10 tablet 01/18/17 Unknown Rx [Provera] medroxyPROGESTERone ACETATE 10 mg PO QDAY #30 tablet 02/08/17 Unknown Rx [Provera] Docusate Sodium [Colace] 100 mg PO BID #60 capsule 03/02/17 Unknown Rx Ferrous Sulfate [Feosol 325 MG tab] 325 mg PO BID #60 tablet 03/02/17 Unknown Rx Allergies Allergy/AdvReac Type Severity Reaction Status Date / Time metoclopramide HCl AdvReac Itching Verified 03/02/17 09:54 [From Reglan] ED Review of Systems ROS: Stated complaint: VAGINAL BLEEDING Other details as noted in HPI Constitutional: malaise. denies: fever Eyes: denies: vision change ENT: denies: epistaxis Respiratory: denies: cough Cardiovascular: denies: chest pain Gastrointestinal: denies: abdominal pain Genitourinary: abnormal menses Musculoskeletal: denies: back pain Skin: denies: lesions Neurological: denies: weakness ED Past Medical Hx - Past Medical History Hx Diabetes: Yes (gestational) Hx Seizures: No Hx Psychiatric Treatment: Yes (Anxiety) Additional medical history: MORBID OBESITY - Surgical History Additional Surgical History: C section x 1 - Social History Smoking Status: Never Smoker Substance Use Type: None - Medications Home Medications: Home Medications Medication Instructions Recorded Confirmed Last Taken Type Ondansetron [Zofran TAB] 4 mg PO Q8HR PRN #10 tablet 03/20/16 Unknown Rx Cefdinir 300 mg PO BID #14 capsule 08/30/16 Unknown Rx metFORMIN [Glucophage] 850 mg PO BID #30 tablet 08/30/16 Unknown Rx Acetaminophen [Acetaminophen TAB] 1,000 mg PO Q6HR #60 tablet 12/10/16 Unknown Rx Acetaminophen [Tylenol] 1,000 mg PO Q6HR #30 tablet 12/10/16 Unknown Rx Naproxen [Naprosyn TAB] 375 mg PO BID #30 tablet 12/10/16 Unknown Rx Naproxen [Naprosyn TAB] 375 mg PO BID #30 tablet 12/10/16 Unknown Rx medroxyPROGESTERone ACETATE 10 mg PO QDAY #10 tablet 01/18/17 Unknown Rx [Provera] medroxyPROGESTERone ACETATE 10 mg PO QDAY #30 tablet 02/08/17 Unknown Rx [Provera] Docusate Sodium [Colace] 100 mg PO BID #60 capsule 03/02/17 Unknown Rx Ferrous Sulfate [Feosol 325 MG tab] 325 mg PO BID #60 tablet 03/02/17 Unknown Rx ED Physical Exam - General Limitations: No Limitations General appearance: alert, in no apparent distress - Head Head exam: Present: atraumatic, normocephalic - Eye Eye exam: Present: normal appearance, EOMI. Absent: nystagmus - ENT ENT exam: Present: normal exam, normal orophraynx, mucous membranes moist, TM's normal bilaterally, normal external ear exam - Neck Neck exam: Present: normal inspection, full ROM. Absent: tenderness, meningismus - Respiratory Respiratory exam: Present: normal lung sounds bilaterally, chest wall tenderness (there is reproducible subxiphoid chest wall tenderness). Absent: respiratory distress, wheezes, rales, rhonchi, stridor, accessory muscle use, decreased breath sounds - Cardiovascular Cardiovascular Exam: Present: regular rate, normal rhythm, normal heart sounds. Absent: bradycardia, tachycardia, irregular rhythm, systolic murmur, diastolic murmur, rubs, gallop - GI/Abdominal GI/Abdominal exam: Present: soft, normal bowel sounds. Absent: distended, tenderness, guarding, rebound, rigid, pulsatile mass - External exam: Present: normal external exam Speculum exam: Present: vaginal bleeding Bi-manual exam: Present: normal bi-manual exam, other (accompanied by nurse Mary Lou murcia). Absent: cervical motion tendernes, adnexal tenderness, adnexal mass - Extremities Exam Extremities exam: Present: normal inspection, full ROM, normal capillary refill. Absent: pedal edema, joint swelling, calf tenderness - Back Exam Back exam: Present: normal inspection, full ROM. Absent: paraspinal tenderness , vertebral tenderness - Neurological Exam Neurological exam: Present: alert, oriented X3, normal gait, other (Extraocular movements intact. Tongue midline. No facial droop. Facial sensation intact to light touch in the V1, V2, V3 distribution bilaterally. 5 and 5 strength in 4 extremities.. Sensation is intact to light touch in 4 extremities.). Absent : motor sensory deficit - Psychiatric Psychiatric exam: Present: normal affect, normal mood - Skin Skin exam: Present: warm, dry, intact, normal color. Absent: rash ED Course Vital Signs 03/02/17 03/02/17 03/02/17 09:54 14:42 14:44 Temperature 98.6 F Pulse Rate 71 74 Respiratory 20 22 Rate Blood Pressure 145/77 O2 Sat by Pulse 100 100 100 Oximetry 03/02/17 03/02/17 03/02/17 14:46 14:48 14:50 Temperature Pulse Rate 73 72 80 Respiratory 35 H 22 29 H Rate Blood Pressure 148/71 148/71 148/71 O2 Sat by Pulse 99 100 100 Oximetry 03/02/17 03/02/17 03/02/17 14:52 14:55 19:02 Temperature Pulse Rate 78 Respiratory 38 H 20 18 Rate Blood Pressure 148/71 O2 Sat by Pulse 100 97 Oximetry ED Medical Decision Making - Lab Data Result diagrams: 03/02/17 10:06 03/02/17 10:06 Vital Signs 03/02/17 03/02/17 03/02/17 09:54 14:42 14:44 Temperature 98.6 F Pulse Rate 71 74 Respiratory 20 22 Rate Blood Pressure 145/77 O2 Sat by Pulse 100 100 100 Oximetry 03/02/17 03/02/17 03/02/17 14:46 14:48 14:50 Temperature Pulse Rate 73 72 80 Respiratory 35 H 22 29 H Rate Blood Pressure 148/71 148/71 148/71 O2 Sat by Pulse 99 100 100 Oximetry 03/02/17 03/02/17 03/02/17 14:52 14:55 19:02 Temperature Pulse Rate 78 Respiratory 38 H 20 18 Rate Blood Pressure 148/71 O2 Sat by Pulse 100 97 Oximetry Lab Results 03/02/17 03/02/17 03/02/17 Range/Units 09:46 10:06 10:06 WBC 7.0 (4.5-11.0) K/mm3 RBC 3.62 L (3.65-5.03) M/mm3 Hgb 8.3 L (10.1-14.3) gm/dl Hct 26.3 L (30.3-42.9) % MCV 73 L (79-97) fl MCH 23 L (28-32) pg MCHC 32 (30-34) % RDW 17.4 H (13.2-15.2) % Plt Count 570 H (140-440) K/mm3 Lymph % (Auto) 19.4 (13.4-35.0) % [place] % (Auto) 4.6 (0.0-7.3) % Eos % (Auto) 1.0 (0.0-4.3) % Baso % (Auto) 0.2 (0.0-1.8) % Lymph # 1.4 (1.2-5.4) K/mm3 [place] # 0.3 (0.0-0.8) K/mm3 Eos # 0.1 (0.0-0.4) K/mm3 Baso # 0.0 (0.0-0.1) K/mm3 Seg Neutrophils % 74.8 H (40.0-70.0) % Seg Neutrophils # 5.3 (1.8-7.7) K/mm3 PT (12.2-14.9) Sec. INR (0.87-1.13) D-Dimer (0-234) ng/mlDDU Sodium (137-145) mmol/L Potassium (3.6-5.0) mmol/L Chloride (98-107) mmol/L Carbon Dioxide (22-30) mmol/L Anion Gap mmol/L BUN (7-17) mg/dL Creatinine (0.7-1.2) mg/dL Estimated GFR ml/min BUN/Creatinine Ratio % Glucose (65-100) mg/dL POC Glucose (70-105) Calcium (8.4-10.2) mg/dL Total Bilirubin (0.1-1.2) mg/dL AST (5-40) units/L ALT (7-56) units/L Alkaline Phosphatase (35-129) units/L Total Protein (6.3-8.2) g/dL Albumin (3.9-5) g/dL Albumin/Globulin Ratio % HCG, Quant < 2 (0-4) mIU/mL Urine Color Yellow (Yellow) Urine Turbidity Clear (Clear) Urine pH 5.0 (5.0-7.0) Ur Specific Morse 1.025 (1.003-1.030) Urine Protein 30 mg/dl (Negative) mg/dL Urine Glucose (UA) Neg (Negative) mg/dL Urine Ketones Neg (Negative) mg/dL Urine Blood Lg (Negative) Urine Nitrite Neg (Negative) Urine Bilirubin Neg (Negative) Urine Urobilinogen < 2.0 (<2.0) mg/dL Ur Leukocyte Esterase Neg (Negative) Urine WBC (Auto) 25.0 H (0.0-6.0) /HPF Urine RBC (Auto) > 182.0 (0.0-6.0) /HPF U Epithel Cells (Auto) 4.0 (0-13.0) /HPF Urine Bacteria (Auto) 1+ (Negative) /HPF Urine Mucus Few /HPF Blood Type Antibody Screen 03/02/17 03/02/17 03/02/17 Range/Units 10:06 10:06 10:06 WBC (4.5-11.0) K/mm3 RBC (3.65-5.03) M/mm3 Hgb (10.1-14.3) gm/dl Hct (30.3-42.9) % MCV (79-97) fl MCH (28-32) pg MCHC (30-34) % RDW (13.2-15.2) % Plt Count (140-440) K/mm3 Lymph % (Auto) (13.4-35.0) % [place] % (Auto) (0.0-7.3) % Eos % (Auto) (0.0-4.3) % Baso % (Auto) (0.0-1.8) % Lymph # (1.2-5.4) K/mm3 [place] # (0.0-0.8) K/mm3 Eos # (0.0-0.4) K/mm3 Baso # (0.0-0.1) K/mm3 Seg Neutrophils % (40.0-70.0) % Seg Neutrophils # (1.8-7.7) K/mm3 PT 13.6 (12.2-14.9) Sec. INR 0.99 (0.87-1.13) D-Dimer 161.75 (0-234) ng/mlDDU Sodium 138 (137-145) mmol/L Potassium 4.2 (3.6-5.0) mmol/L Chloride 102.5 (98-107) mmol/L Carbon Dioxide 25 (22-30) mmol/L Anion Gap 15 mmol/L BUN 11 (7-17) mg/dL Creatinine 0.7 (0.7-1.2) mg/dL Estimated GFR > 60 ml/min BUN/Creatinine Ratio 16 % Glucose 157 H (65-100) mg/dL POC Glucose (70-105) Calcium 8.7 (8.4-10.2) mg/dL Total Bilirubin 0.20 (0.1-1.2) mg/dL AST 12 (5-40) units/L ALT 11 (7-56) units/L Alkaline Phosphatase 79 (35-129) units/L Total Protein 7.9 (6.3-8.2) g/dL Albumin 3.8 L (3.9-5) g/dL Albumin/Globulin Ratio 0.9 % HCG, Quant (0-4) mIU/mL Urine Color (Yellow) Urine Turbidity (Clear) Urine pH (5.0-7.0) Ur Specific Morse (1.003-1.030) Urine Protein (Negative) mg/dL Urine Glucose (UA) (Negative) mg/dL Urine Ketones (Negative) mg/dL Urine Blood (Negative) Urine Nitrite (Negative) Urine Bilirubin (Negative) Urine Urobilinogen (<2.0) mg/dL Ur Leukocyte Esterase (Negative) Urine WBC (Auto) (0.0-6.0) /HPF Urine RBC (Auto) (0.0-6.0) /HPF U Epithel Cells (Auto) (0-13.0) /HPF Urine Bacteria (Auto) (Negative) /HPF Urine Mucus /HPF Blood Type Antibody Screen 03/02/17 03/02/17 Range/Units 10:08 12:16 WBC (4.5-11.0) K/mm3 RBC (3.65-5.03) M/mm3 Hgb (10.1-14.3) gm/dl Hct (30.3-42.9) % MCV (79-97) fl MCH (28-32) pg MCHC (30-34) % RDW (13.2-15.2) % Plt Count (140-440) K/mm3 Lymph % (Auto) (13.4-35.0) % [place] % (Auto) (0.0-7.3) % Eos % (Auto) (0.0-4.3) % Baso % (Auto) (0.0-1.8) % Lymph # (1.2-5.4) K/mm3 [place] # (0.0-0.8) K/mm3 Eos # (0.0-0.4) K/mm3 Baso # (0.0-0.1) K/mm3 Seg Neutrophils % (40.0-70.0) % Seg Neutrophils # (1.8-7.7) K/mm3 PT (12.2-14.9) Sec. INR (0.87-1.13) D-Dimer (0-234) ng/mlDDU Sodium (137-145) mmol/L Potassium (3.6-5.0) mmol/L Chloride (98-107) mmol/L Carbon Dioxide (22-30) mmol/L Anion Gap mmol/L BUN (7-17) mg/dL Creatinine (0.7-1.2) mg/dL Estimated GFR ml/min BUN/Creatinine Ratio % Glucose (65-100) mg/dL POC Glucose 127 H (70-105) Calcium (8.4-10.2) mg/dL Total Bilirubin (0.1-1.2) mg/dL AST (5-40) units/L ALT (7-56) units/L Alkaline Phosphatase (35-129) units/L Total Protein (6.3-8.2) g/dL Albumin (3.9-5) g/dL Albumin/Globulin Ratio % HCG, Quant (0-4) mIU/mL Urine Color (Yellow) Urine Turbidity (Clear) Urine pH (5.0-7.0) Ur Specific [place] (1.003-1.030) Urine Protein (Negative) mg/dL Urine Glucose (UA) (Negative) mg/dL Urine Ketones (Negative) mg/dL Urine Blood (Negative) Urine Nitrite (Negative) Urine Bilirubin (Negative) Urine Urobilinogen (<2.0) mg/dL Ur Leukocyte Esterase (Negative) Urine WBC (Auto) (0.0-6.0) /HPF Urine RBC (Auto) (0.0-6.0) /HPF U Epithel Cells (Auto) (0-13.0) /HPF Urine Bacteria (Auto) (Negative) /HPF Urine Mucus /HPF Blood Type A POSITIVE Antibody Screen Negative - EKG Data -: EKG Interpreted by Sc - EKG Data When compared to previous EKG there are: previous EKG unavailable 03/02/17 19:44 Normal sinus, 78 bpm, normal intervals, normal axis, not morphologically consistent with STEMI, no prior for comparison - Radiology Data Radiology results: image reviewed interpreted by me: X-ray of the chest is negative for acute findings. Pelvic ultrasound reviewed from prior visitation - Medical Decision Making Differential diagnoses: Pneumonia, pulmonary embolus, GERD/gastritis, hiatal hernia, vaginal bleeding, chronic microcytic anemia Assessment and plan: 26-year-old female with multiple complaints. Vaginal bleeding is constant for months. Patient hemodynamically stable. He should not , hemoglobin and hematocrit less than prior, patient not tachycardic or hypotensive, does not meet criteria for packed red blood cell transfusion at this time. Encouraged ferric sulfate, will also prescribe Colace to assist with bowel movements. Low risk by well's criteria, d-dimer negative, x-ray of the chest negative, EKG unremarkable. Patient needs to follow up with an outpatient veneer taping machine operator. She was given ketorolac for pain, and will be discharged. Return precautions were reviewed. Critical care attestation.: If time is entered above; I have spent that time in minutes in the direct care of this critically ill patient, excluding procedure time. ED Disposition Clinical Impression: Anemia Disposition: DC-01 TO HOME OR SELFCARE Is pt being admited?: No Does the pt Need Aspirin: No Condition: Stable Instructions: Menstruation (ED) Additional Instructions: Take the medications as directed. Follow up with a veneer taping machine operator within the next month. Return to the ER right away with new pain, worsened pain, migration of pain, dizziness, chills, lethargy, irritability, projectile vomiting, change in mental status, bleeding more than 2 pads per hour, lightheadedness, dizziness, chest pain, shortness of breath. Referrals: PRIMARY CAREMD [Primary Care Provider] - 3-5 Days [facility] [Provider Group] - 3-5 Days [facility] [Provider Group] - 3-5 Days [facility] [Provider Group] - 3-5 Days [facility] [Provider Group] - 3-5 Days
[2017-03-02] MEDS ORDERED: TORADOL IM ONE (18:21)
[2017-03-02] MEDS ORDERED: TYLENOL PO ONE (18:22)
--- NOTE | 2017-03-02 19:42 | XRay Report ---
FINAL REPORT EXAM: XR CHEST ROUTINE 2V HISTORY: pleuritic pain TECHNIQUE: Two view chest PA and lateral PRIORS: None. FINDINGS: Cardiac and mediastinal contours are unremarkable. No focal pulmonary infiltrate is identified. No pleural fluid collection seen. Pulmonary vasculature is unremarkable. IMPRESSION: Negative two-view chest
== END 2017-03-02 20:17 | disposition home or self-care (01) ==
LOC: ED 09:47
DX: D64.9 Anemia, unspecified (principal); Z88.8 Allergy status to other drugs, medicaments and biological substances
CPT/HCPCS: 36415; 71020; 80053; 81001; 82962; 84484; 84702; 85025; 85379; 85610; 86850; 86900; 86901; 93005; 93010; 96372; 99284; J1885

== ENCOUNTER 2018-11-28 13:00 | Emergency (ER) | payer SELFPAY ==
--- NOTE | 2018-11-28 13:14 | Event Note ---
ED Screening Note ED Screening Note: pt presents with vaginal itching/burning +yellow vaginal discharge no dysuria PMHx gestational DM allergy to reglan This initial assessment/diagnostic orders/clinical plan/treatment(s) is/are subject to change based on patients health status, clinical progression and re- assessment by fellow clinical providers in the ED. Further treatment and workup at subsequent clinical providers discretion. Patient/guardian urged not to elope from the ED as their condition may be serious if not clinically assessed and managed. Initial orders include: UA, urine preg, wet prep, G/C
[2018-11-28 14:43] LABS: HCG Qualitative,Urine Negative (Negative)
[2018-11-28 14:51] LABS: Bacteria,Urine 1+ /HPF (Negative); Bilirubin,Urine NEG (Negative); Blood,Urine MOD (Negative); Color,Urine Yellow (Yellow); Mucus,Urine FEW /HPF; Protein,Urine <15 mg/dL mg/dL (Negative); Urobilinogen,Urine < 2.0 mg/dL (<2.0)
[2018-11-28] MEDS ORDERED: ZITHROMAX PO ONE (16:20)
[2018-11-28] MEDS ORDERED: ROCEPHIN IM ONE (16:20)
[2018-11-28] MEDS ORDERED: FLAGYL PO ONE (16:20)
[2018-11-28] MEDS ORDERED: XYLOCAINE 1% MPF 5 mL INFILTRATI ONE (16:20)
--- NOTE | 2018-11-28 16:28 | Emergency Department Report ---
ED Female HPI - General Chief complaint: Urogenital-Female Stated complaint: VAG BURNING/ITCHING/SWELLING Time Seen by Provider: 11/28/18 13:12 Source: patient Mode of arrival: Ambulatory Limitations: No Limitations - History of Present Illness Initial comments: Patient is a 28-year-old female who presents to ED complaining of vaginal itching and irritation with vaginal discharge 5 days. Patient states that she is is also experiencing dysuria. She denies fever/chills/vomiting/vaginal bleeding. MD Complaint: vaginal discharge, possible STD Severity: mild Severity scale (0 -10): 4 Associated Symptoms: denies: vaginal bleeding, nausea/vomiting, loss of appetite - Related Data Sexually active: Yes Previous Rx's Medication Instructions Recorded Last Taken Type Ondansetron [Zofran TAB] 4 mg PO Q8HR PRN #10 tablet 03/20/16 Unknown Rx Cefdinir 300 mg PO BID #14 capsule 08/30/16 Unknown Rx metFORMIN [Glucophage] 850 mg PO BID #30 tablet 08/30/16 Unknown Rx Acetaminophen [Acetaminophen TAB] 1,000 mg PO Q6HR #60 tablet 12/10/16 Unknown Rx Acetaminophen [Tylenol] 1,000 mg PO Q6HR #30 tablet 12/10/16 Unknown Rx Naproxen [Naprosyn TAB] 375 mg PO BID #30 tablet 12/10/16 Unknown Rx Naproxen [Naprosyn TAB] 375 mg PO BID #30 tablet 12/10/16 Unknown Rx medroxyPROGESTERone ACETATE 10 mg PO QDAY #10 tablet 01/18/17 Unknown Rx [Provera] medroxyPROGESTERone ACETATE 10 mg PO QDAY #30 tablet 02/08/17 Unknown Rx [Provera] Docusate Sodium [Colace] 100 mg PO BID #60 capsule 03/02/17 Unknown Rx Ferrous Sulfate [Feosol 325 MG tab] 325 mg PO BID #60 tablet 03/02/17 Unknown Rx Fluconazole [Diflucan TAB] 100 mg PO QDAY #1 tablet 11/28/18 Unknown Rx Nitrofurantoin Cannon/M-Cryst 100 mg PO Q12HR #14 capsule 11/28/18 Unknown Rx [Macrobid CAP] Allergies Allergy/AdvReac Type Severity Reaction Status Date / Time metoclopramide HCl AdvReac Itching Verified 03/02/17 09:54 [From Reg[facility]] ED Review of Systems ROS: Stated complaint: VAG BURNING/ITCHING/SWELLING Other details as noted in HPI Comment: All other systems reviewed and negative ED Past Medical Hx - Past Medical History Previous Medical History?: Yes Hx Diabetes: Yes (gestational) Hx Seizures: No Hx Psychiatric Treatment: Yes (Anxiety) Additional medical history: MORBID OBESITY - Surgical History Past Surgical History?: Yes Additional Surgical History: C section x 1 - Social History Smoking Status: Never Smoker Substance Use Type: None - Medications Home Medications: Home Medications Medication Instructions Recorded Confirmed Last Taken Type Ondansetron [Zofran TAB] 4 mg PO Q8HR PRN #10 tablet 03/20/16 Unknown Rx Cefdinir 300 mg PO BID #14 capsule 08/30/16 Unknown Rx metFORMIN [Glucophage] 850 mg PO BID #30 tablet 08/30/16 Unknown Rx Acetaminophen [Acetaminophen TAB] 1,000 mg PO Q6HR #60 tablet 12/10/16 Unknown Rx Acetaminophen [Tylenol] 1,000 mg PO Q6HR #30 tablet 12/10/16 Unknown Rx Naproxen [Naprosyn TAB] 375 mg PO BID #30 tablet 12/10/16 Unknown Rx Naproxen [Naprosyn TAB] 375 mg PO BID #30 tablet 12/10/16 Unknown Rx medroxyPROGESTERone ACETATE 10 mg PO QDAY #10 tablet 01/18/17 Unknown Rx [Provera] medroxyPROGESTERone ACETATE 10 mg PO QDAY #30 tablet 02/08/17 Unknown Rx [Provera] Docusate Sodium [Colace] 100 mg PO BID #60 capsule 03/02/17 Unknown Rx Ferrous Sulfate [Feosol 325 MG tab] 325 mg PO BID #60 tablet 03/02/17 Unknown Rx Fluconazole [Diflucan TAB] 100 mg PO QDAY #1 tablet 11/28/18 Unknown Rx Nitrofurantoin Cannon/M-Cryst 100 mg PO Q12HR #14 capsule 11/28/18 Unknown Rx [Macrobid CAP] ED Physical Exam - General Limitations: No Limitations General appearance: alert, in no apparent distress - Head Head exam: Present: atraumatic, normocephalic - Eye Eye exam: Present: normal appearance - ENT ENT exam: Present: mucous membranes moist - Neck Neck exam: Present: normal inspection - Respiratory Respiratory exam: Present: normal lung sounds bilaterally. Absent: respiratory distress - Cardiovascular Cardiovascular Exam: Present: regular rate, normal rhythm. Absent: systolic murmur, diastolic murmur, rubs, gallop - GI/Abdominal GI/Abdominal exam: Present: soft, normal bowel sounds - External exam: Present: normal external exam. Absent: lesions, lacerations - Extremities Exam Extremities exam: Present: normal inspection - Back Exam Back exam: Present: normal inspection, full ROM. Absent: CVA tenderness (R), CVA tenderness (L) - Neurological Exam Neurological exam: Present: alert, oriented X3, normal gait - Psychiatric Psychiatric exam: Present: normal affect, normal mood - Skin Skin exam: Present: warm, dry, intact, normal color. Absent: rash ED Course Vital Signs 11/28/18 11/28/18 13:14 17:06 Temperature 98 F 98.3 F Pulse Rate 93 H Respiratory 16 18 Rate Blood Pressure 125/83 144/84 O2 Sat by Pulse 97 Oximetry ED Medical Decision Making - Medical Decision Making 28-year-old female presents with vaginitis and STD exposure. ED course: Urinalysis positive for leukorrhea Patient received 250 mg of Rocephin, azithromycin 1 g, Flagyl 2 g. prophylaxis treatment due to symptomatic Discussed with patient possible STD due to exposure. Discussed with patient findings and treatment. Patient will be treated for vulvovaginitis as well. Discussed prophylaxis treatment patient is to abstain from sex 7-10 days as treatment. Discussed patient partner knowledge and treatment. Discussed the follow-up with the health department for further STD testing. Patient's alert and oriented times 3. Vital signs are normal patient is in no acute discharge. Patient will be discharged home with instructions. Critical care attestation.: If time is entered above; I have spent that time in minutes in the direct care of this critically ill patient, excluding procedure time. ED Disposition Clinical Impression: Vaginitis, Exposure to STD Disposition: DC-01 TO HOME OR SELFCARE Is pt being admited?: No Does the pt Need Aspirin: No Condition: Stable Instructions: Sexually Transmitted Diseases (ED), Safe Sex (ED), Vaginitis (ED) Additional Instructions: Make sure to follow up with the primary care physician as discussed. Take all your medications as you've been prescribed. If you have any worsening symptoms or develop new symptoms please return to ED immediately. Prescriptions: Fluconazole [Diflucan TAB] 100 mg PO QDAY #1 tablet Nitrofurantoin Cannon/M-Cryst [Macrobid CAP] 100 mg PO Q12HR #14 capsule Referrals: MARILEE ELIAS MD [Primary Care Provider] - 3-5 Days [facility] [Outside] - 3-5 Days [facility] [Outside] - 3-5 Days Forms: Accompanied Note, Work/School Release Form(ED) Time of Disposition: 16:43
[2018-11-28 17:48] VITALS: BP 144/84
== END 2018-11-28 17:03 | disposition home or self-care (01) ==
LOC: ED 13:00
DX: N76.0 Acute vaginitis (principal); B96.89 Other specified bacterial agents as the cause of diseases classified elsewhere; Z20.2 Contact with and (suspected) exposure to infections with a predominantly sexual mode of transmission; F41.9 Anxiety disorder, unspecified; E66.01 Morbid (severe) obesity due to excess calories; Z68.45 Body mass index [BMI] 70 or greater, adult; Z79.899 Other long term (current) drug therapy; Z88.5 Allergy status to narcotic agent
CPT/HCPCS: 81001; 81025; 87086; 96372; 99283; J0696

== ENCOUNTER 2019-09-02 19:57 | Emergency (ER) | payer SELFPAY ==
--- NOTE | 2019-09-02 20:07 | Event Note ---
ED Screening Note Date of service: 09/02/19 Time: 20:06 ED Screening Note: 28 y/o female comes in for dry cough and some sob This initial assessment/diagnostic orders/clinical plan/treatment(s) is/are subject to change based on patients health status, clinical progression and re- assessment by fellow clinical providers in the ED. Further treatment and workup at subsequent clinical providers discretion. Patient/guardian urged not to elope from the ED as their condition may be serious if not clinically assessed and managed. Initial orders include:
[2019-09-02 20:08] VITALS: BP 154/99
--- NOTE | 2019-09-02 21:35 | Emergency Department Report ---
ED General Adult HPI - General Chief complaint: Dyspnea/Respdistress Stated complaint: CHEST DISCOMFORT Time Seen by Provider: 09/02/19 20:46 Source: patient Mode of arrival: Ambulatory Limitations: No Limitations - History of Present Illness Initial comments: 28-year-old obese female presents emergency department complaining of a 5 to 6- day history of waxing and waning chest discomfort associated with a dry cough and worse when she tries to take a deep breath. She reports no known contact with the coronavirus. Reports no hemoptysis no hematemesis no hematochezia, no fever, chills, sweats no orthopnea no wheezing no odynophagia or dysphasia no diarrhea no rashes no recent travel Radiation: non-radiation Improves with: none Worsens with: none Associated Symptoms: chest pain, cough. denies: loss of appetite, malaise, rash Treatments Prior to Arrival: none - Related Data Previous Rx's Medication Instructions Recorded Last Taken Type Ondansetron [Zofran TAB] 4 mg PO Q8HR PRN #10 tablet 03/20/16 Unknown Rx Cefdinir 300 mg PO BID #14 capsule 08/30/16 Unknown Rx metFORMIN [Glucophage] 850 mg PO BID #30 tablet 08/30/16 Unknown Rx Acetaminophen [Acetaminophen TAB] 1,000 mg PO Q6HR #60 tablet 12/10/16 Unknown Rx Acetaminophen [Tylenol] 1,000 mg PO Q6HR #30 tablet 12/10/16 Unknown Rx Naproxen [Naprosyn TAB] 375 mg PO BID #30 tablet 12/10/16 Unknown Rx Naproxen [Naprosyn TAB] 375 mg PO BID #30 tablet 12/10/16 Unknown Rx medroxyPROGESTERone ACETATE 10 mg PO QDAY #10 tablet 01/18/17 Unknown Rx [Provera] medroxyPROGESTERone ACETATE 10 mg PO QDAY #30 tablet 02/08/17 Unknown Rx [Provera] Docusate Sodium [Colace] 100 mg PO BID #60 capsule 03/02/17 Unknown Rx Ferrous Sulfate [Feosol 325 MG tab] 325 mg PO BID #60 tablet 03/02/17 Unknown Rx Fluconazole [Diflucan TAB] 100 mg PO QDAY #1 tablet 11/28/18 Unknown Rx Nitrofurantoin Saunders/M-Cryst 100 mg PO Q12HR #14 capsule 11/28/18 Unknown Rx [Macrobid CAP] Albuterol INH(or & Nicu Only) 1 puff IH QID #8.5 gram 09/02/19 Unknown Rx [ProAir HFA Inhaler] Benzonatate [Tessalon Perles] 100 mg PO Q8HR #20 capsule 09/02/19 Unknown Rx Allergies Allergy/AdvReac Type Severity Reaction Status Date / Time metoclopramide HCl AdvReac Itching Verified 03/02/17 09:54 [From [facility]] ED Review of Systems ROS: Stated complaint: CHEST DISCOMFORT Other details as noted in HPI Comment: All other systems reviewed and negative ED Past Medical Hx - Past Medical History Hx Diabetes: Yes (gestational) Hx Seizures: No Hx Psychiatric Treatment: Yes (Anxiety) Additional medical history: MORBID OBESITY - Surgical History Additional Surgical History: C section x 1 - Social History Smoking Status: Never Smoker Substance Use Type: None - Medications Home Medications: Home Medications Medication Instructions Recorded Confirmed Last Taken Type Ondansetron [Zofran TAB] 4 mg PO Q8HR PRN #10 tablet 03/20/16 Unknown Rx Cefdinir 300 mg PO BID #14 capsule 08/30/16 Unknown Rx metFORMIN [Glucophage] 850 mg PO BID #30 tablet 08/30/16 Unknown Rx Acetaminophen [Acetaminophen TAB] 1,000 mg PO Q6HR #60 tablet 12/10/16 Unknown Rx Acetaminophen [Tylenol] 1,000 mg PO Q6HR #30 tablet 12/10/16 Unknown Rx Naproxen [Naprosyn TAB] 375 mg PO BID #30 tablet 12/10/16 Unknown Rx Naproxen [Naprosyn TAB] 375 mg PO BID #30 tablet 12/10/16 Unknown Rx medroxyPROGESTERone ACETATE 10 mg PO QDAY #10 tablet 01/18/17 Unknown Rx [Provera] medroxyPROGESTERone ACETATE 10 mg PO QDAY #30 tablet 02/08/17 Unknown Rx [Provera] Docusate Sodium [Colace] 100 mg PO BID #60 capsule 03/02/17 Unknown Rx Ferrous Sulfate [Feosol 325 MG tab] 325 mg PO BID #60 tablet 03/02/17 Unknown Rx Fluconazole [Diflucan TAB] 100 mg PO QDAY #1 tablet 11/28/18 Unknown Rx Nitrofurantoin Saunders/M-Cryst 100 mg PO Q12HR #14 capsule 11/28/18 Unknown Rx [Macrobid CAP] Albuterol INH(or & Nicu Only) 1 puff IH QID #8.5 gram 09/02/19 Unknown Rx [ProAir HFA Inhaler] Benzonatate [Tessalon Perles] 100 mg PO Q8HR #20 capsule 09/02/19 Unknown Rx ED Physical Exam - General Limitations: No Limitations General appearance: alert, in no apparent distress - Head Head exam: Present: atraumatic, normocephalic - Eye Eye exam: Present: normal appearance, PERRL - ENT ENT exam: Present: normal exam, mucous membranes moist - Neck Neck exam: Present: normal inspection - Respiratory Respiratory exam: Present: normal lung sounds bilaterally. Absent: respiratory distress - Cardiovascular Cardiovascular Exam: Present: regular rate, normal rhythm. Absent: systolic murmur, diastolic murmur, rubs, gallop - GI/Abdominal GI/Abdominal exam: Present: soft, normal bowel sounds - Extremities Exam Extremities exam: Present: normal inspection - Back Exam Back exam: Present: normal inspection - Neurological Exam Neurological exam: Present: alert, oriented X3 - Psychiatric Psychiatric exam: Present: normal affect, normal mood - Skin Skin exam: Present: warm, dry, intact, normal color. Absent: rash ED Course Vital Signs 09/02/19 09/02/19 20:06 23:10 Temperature 98.0 F Pulse Rate 97 H 85 Respiratory 18 17 Rate Blood Pressure 154/99 O2 Sat by Pulse 100 100 Oximetry ED Medical Decision Making - Radiology Data Radiology results: report reviewed (Normal chest x-ray) - Medical Decision Making This patient presents with acute cough, most consistent with noncardiac process. Differential diagnosis includes asthma, hyperreactive airways, allergies, acid reflux. Presentation not consistent with acute bacterial pneumonia, influenza, asthma, transient airway hyperresponsiveness. Presentation not consistent with chronic causes of cough (including GERD, asthma, postnasal discharge, medication side effect, CHF, lung cancer or mass). Plan: Normal CXR, supportive care, reassess Critical care attestation.: If time is entered above; I have spent that time in minutes in the direct care of this critically ill patient, excluding procedure time. ED Disposition Clinical Impression: Morbid obesity, Physical deconditioning, Cough Disposition: DC-01 TO HOME OR SELFCARE Is pt being admited?: No Does the pt Need Aspirin: No Condition: Stable Instructions: Noncardiac Chest Pain (ED), Acute Cough (ED) Additional Instructions: Recommend follow-up with your primary care provider or walk-in clinic even in the urgent care clinic for further evaluation of the chest tightness and cough. Due to some risk factors it may be a good idea for an exercise stress test also spirometry given the nature of your complaint. Vital signs remained stable throughout the emergency room visit and your chest x-ray was Prescriptions: Albuterol INH(or & Nicu Only) [ProAir HFA Inhaler] 1 puff IH QID #8.5 gram Benzonatate [Tessalon Perles] 100 mg PO Q8HR #20 capsule Referrals: [facility] [Provider Group] - 3-5 Days [facility], [Primary Care Provider] - 3-5 Days
--- NOTE | 2019-09-02 21:39 | XRay Report ---
CHEST 2 VIEWS INDICATION / CLINICAL INFORMATION: MAIN: sob,cough and rales; c/o chest tightness and dry cough when trying to take a deep breath x 5 da ys. COMPARISON: None available. FINDINGS: SUPPORT DEVICES: None. HEART / MEDIASTINUM: No significant abnormality. LUNGS / PLEURA: No significant pulmonary or pleural abnormality. No pneumothorax. ADDITIONAL FINDINGS: No significant additional findings. IMPRESSION: 1. No acute findings. Signer Name: Peter Lynn MD Signed: 09/02/2019 9:35 PM Workstation Name: [id number]
== END 2019-09-02 23:14 | disposition home or self-care (01) ==
LOC: ED 19:57
DX: R07.89 Other chest pain (principal); F41.9 Anxiety disorder, unspecified; E66.01 Morbid (severe) obesity due to excess calories; Z88.8 Allergy status to other drugs, medicaments and biological substances; Z79.899 Other long term (current) drug therapy; Z68.44 Body mass index [BMI] 60.0-69.9, adult; Z98.890 Other specified postprocedural states
CPT/HCPCS: 71046